=== PATIENT | male | born 1985 | race Caucasian/White ===

== ENCOUNTER → 2021-01-07 | Outpatient (CLI) | payer OTHER ==
[2021-01-07 12:02] LABS: RED BLOOD COUNT 4.76 M/UL (4.20-5.50); WHITE BLOOD COUNT 9.1 K/UL (4.5-11.0)
[2021-01-07 12:40] LABS: BUN/CREATININE RATIO 7 (0-10)
== END ==
LOC: LAB 10:53
PROVIDERS: Family Medicine
DX: Z13.220 Encounter for screening for lipoid disorders (principal); M79.641 Pain in right hand; F31.9 Bipolar disorder, unspecified; F41.9 Anxiety disorder, unspecified; Z87.81 Personal history of (healed) traumatic fracture
CPT/HCPCS: 36415; 73130; 80053; 80061; 84443; 85025

== ENCOUNTER → 2021-05-09 | Outpatient (CLI) | payer OTHER | LOC: KOH-I 15:04 | DX: M54.2 Cervicalgia (principal); M54.9 Dorsalgia, unspecified; R05 Cough; G56.03 Carpal tunnel syndrome, bilateral upper limbs; M47.814 Spondylosis without myelopathy or radiculopathy, thoracic region | CPT/HCPCS: 71046; 72040; 72070; 72100; 73110 ==

== ENCOUNTER → 2021-08-08 | Outpatient (CLI) | payer SELFPAY | LOC: RAD 05:26 | DX: M25.572 Pain in left ankle and joints of left foot (principal) | CPT/HCPCS: 73590; 73610; 73630 ==